=== PATIENT | male | born 2000 | race Caucasian/White ===

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

== ENCOUNTER 2019-01-22 19:34 | Emergency (ER) | payer BC ==
[~2019-01-22] VITALS: Ht 182.9 cm; Wt 70.4 kg
[~2019-01-22 19:34] MED LIST changes: +AMOXICILLIN500 MG PO
[2019-01-22 20:20] VITALS: BP 116/73
== END 2019-01-22 20:20 | disposition home or self-care (01) | DRG 605 ==
LOC: ED 19:34
PROC: 0HQ1XZZ Repair Face Skin, External Approach (ICD-10-PCS; principal; 2019-01-22)
DX: S01.81XA Laceration without foreign body of other part of head, initial encounter (principal); W01.0XXA Fall on same level from slipping, tripping and stumbling without subsequent striking against object, initial encounter; Y92.009 Unspecified place in unspecified non-institutional (private) residence as the place of occurrence of the external cause

== ENCOUNTER 2019-04-17 11:58 | Emergency (ER) | payer BC ==
[~2019-04-17] VITALS: Ht 182.9 cm; Wt 75.0 kg
[2019-04-17 12:47] LABS: HEMATOCRIT 46.9 % (39.0-50.0); HEMOGLOBIN 16.3 g/dl (14.0-18.0); IMMATURE GRANULOCYTES 0.4 % (0.0-5.0); MEAN CORPUSCULAR HGB CONC 34.8 g/L CALC (32.0-36.0); NEUT# 5.02 thou/uL (1.82-7.42); RED BLOOD COUNT 5.43 mill/uL (4.70-6.10); RED CELL DISTRI WIDTH 12.1 % (11.5-15.5)
[2019-04-17 12:59] LABS: MEAN CELL VOLUME 86.4 fL CALC (80.0-100.0)
[2019-04-17 13:08] LABS: ALBUMIN 5.5 g/dL (3.2-5.0); BUN 12 mg/dL (8-21); BUN/CREATININE RATIO 12 (12-20 (CALC)); CHLORIDE 105 mmol/l (95-108); GFR > 60 ML/MIN (>=60 (CALC)); GFR FOR AFR.AMER. > 60 ML/MIN (>=60 (CALC)); POTASSIUM 4.9 mmol/l (3.5-5.1); SGOT/AST 31 u/l (17-59); SODIUM 142 mmol/l (137-146); TOTAL PROTEIN 8.2 g/dL (6.3-8.2)
[2019-04-17 13:11] LABS: ALKALINE PHOSPHATASE 79 u/l (38-126); ANION GAP 17 (6-22 (CALC)); BILIRUBIN, TOTAL 2.2 mg/dL (0.0-1.4); CARBON DIOXIDE 25 mmol/l (22-30)
[2019-04-17 13:27] LABS: URINE BLOOD DIPSTICK NEGATIVE (NEGATIVE); URINE COLOR YELLOW; URINE GLUCOSE - DIPSTICK NEGATIVE (NEGATIVE); URINE KETONE TRACE mg/dL (NEGATIVE); URINE LEUK ESTERASE NEGATIVE (Negative); URINE NITRITE - DIPSTICK NEGATIVE (Negative); URINE PH 6.5 (4.5-8.0); URINE PROTEIN - DIPSTICK 100 mg/dL (NEG-TRACE)
[2019-04-17 13:32] LABS: URINE BILIRUBIN - DIPSTICK SMALL (NEGATIVE); URINE CLARITY SL CLOUDY
[2019-04-17 13:38] LABS: BARBITURATES NEGATIVE (NEGATIVE); COCAINE POSITIVE (NEGATIVE); METHADONE NEGATIVE (NEGATIVE); OXCYCODONE NEGATIVE (NEGATIVE); TETRAHYDROCANNABIONOL POSITIVE (NEGATIVE); TRICYLIC ANTIDEPRESSANTS NEGATIVE (NEGATIVE); URINE EPITHELIAL CELLS FEW EPI/hpf (0-FEW); URINE MUCUS FEW hpf (NONE-FEW)
[2019-04-17 14:05] VITALS: BP 114/74
== END 2019-04-17 14:20 | disposition left against medical advice (07) | DRG 313 ==
LOC: ED 11:58
DX: R07.9 Chest pain, unspecified (principal); F14.90 Cocaine use, unspecified, uncomplicated; R06.02 Shortness of breath; Z91.19 Patient's noncompliance with other medical treatment and regimen

== ENCOUNTER 2020-06-09 23:24 | Emergency (ER) | payer BC ==
[~2020-06-09] VITALS: Ht 182.9 cm; Wt 69.6 kg
[2020-06-09] MEDS ORDERED: PROCTOZONE-HC2.5 % RE (23:48)
[2020-06-09 23:57] VITALS: BP 128/73
== END 2020-06-09 23:59 | disposition home or self-care (01) | DRG 395 ==
LOC: ED 23:24
DX: K60.2 Anal fissure, unspecified (principal); F17.200 Nicotine dependence, unspecified, uncomplicated

== ENCOUNTER 2024-08-11 16:13 | Emergency (ER) | payer BC ==
[~2024-08-11] VITALS: Ht 182.9 cm; Wt 75.0 kg
[~2024-08-11 16:13] MED LIST changes: +PROCTOZONE-HC2.5 % RE
[2024-08-11] MEDS ORDERED: LIDOCAINE HCL 1% (10MG/ML) 100 MG/10 ML MDV ONE (16:40)
[2024-08-11] MEDS ORDERED: ZITHROMAX500 MG PO (16:58)
[2024-08-11 17:01] VITALS: BP 133/80
== END 2024-08-11 17:06 | disposition home or self-care (01) | DRG 951 ==
LOC: ED 16:13
DX: Z20.2 Contact with and (suspected) exposure to infections with a predominantly sexual mode of transmission (principal); F17.200 Nicotine dependence, unspecified, uncomplicated